=== PATIENT | female | born 1970 | race Hispanic/Latino ===

== ENCOUNTER 2018-12-24 09:00 | Outpatient (AMBR) | payer MEDICAID, SELFPAY ==
--- NOTE | 2018-12-05 14:21 | PT.ODAYNRPT ---
PT Outpatient Daily Note Date of Service: December 05, 2018 OP Daily Note Visit Reasons: cva Outpatient Physical Therapy Treatment Date: 12/05/18 Subjective: Doing well today Objective: See F/S for therex Assessment: Pt has limited R LE balance and WB tolerance and requires hand support in standing. Plan: Continue per POC Length of Time (minutes) of Treatment: 30 Minutes Office Procedures PT Procedures PT Date of Service: 12/05/18 Therapeutic Exercise 30 minutes: Yes
--- NOTE | 2018-12-10 13:15 | PT.ODAYNRPT ---
PT Outpatient Daily Note Date of Service: December 10, 2018 OP Daily Note Pediatric or Adult Patient: Adult PT >13 Visit Reasons: cva Outpatient Physical Therapy Treatment Date: 12/10/18 Subjective: Doing well today, no complaints since last visit Objective: See F/S for therex Assessment: Pt has limited R LE balance and WB tolerance and requires hand support in standing. Plan: Continue per POC Length of Time (minutes) of Treatment: 30 Minutes Office Procedures PT Procedures PT Date of Service: 12/05/18 Therapeutic Exercise 30 minutes: Yes PT Procedures PT Date of Service: 12/10/18 Therapeutic Exercise 30 minutes: Yes
--- NOTE | 2018-12-12 11:34 | PT.ODAYNRPT ---
PT Outpatient Daily Note Date of Service: December 12, 2018 OP Daily Note Visit Reasons: cva Outpatient Physical Therapy Treatment Date: 12/12/18 Subjective: Doing well today, no complaints since last visit Objective: See F/S for therex Assessment: Pt has limited R LE balance and WB tolerance and requires hand support in standing. Able to move R LE into figure 4 position with light resistance and DF R ankle but in standing she has difficulty clearing toes. Plan: Continue per POC Length of Time (minutes) of Treatment: 30 Minutes Office Procedures PT Procedures PT Date of Service: 12/05/18 Therapeutic Exercise 30 minutes: Yes PT Procedures PT Date of Service: 12/10/18 Therapeutic Exercise 30 minutes: Yes PT Procedures PT Date of Service: 12/12/18 Therapeutic Exercise 30 minutes: Yes
--- NOTE | 2018-12-17 19:32 | PT.ODAYNRPT ---
PT Outpatient Daily Note Date of Service: December 17, 2018 OP Daily Note Pediatric or Adult Patient: Adult PT >13 Visit Reasons: cva Outpatient Physical Therapy Treatment Date: 12/17/18 Subjective: Doing well today, no complaints since last visit Objective: See F/S for therex Assessment: Pt has limited R LE balance and WB tolerance and requires hand support in standing. Able to move R LE into figure 4 position with light resistance and DF R ankle but in standing she has difficulty clearing toes. Plan: Continue per POC Length of Time (minutes) of Treatment: 30 Minutes Office Procedures PT Procedures PT Date of Service: 12/17/18 Therapeutic Exercise 30 minutes: Yes PT Procedures PT Date of Service: 12/05/18 Therapeutic Exercise 30 minutes: Yes PT Procedures PT Date of Service: 12/10/18 Therapeutic Exercise 30 minutes: Yes PT Procedures PT Date of Service: 12/12/18 Therapeutic Exercise 30 minutes: Yes
--- NOTE | 2018-12-24 18:12 | PT.ODS1RPT ---
PT OP Progress/Discharge Note Date of Service: December 24, 2018 Progress Note/DC Note Progress Note/Discharge Note: Progress Note Patient Information Visit Reasons: cva Service Continue Service or Discharge: Continue Service Status Subjective: Pt and son think she has improved since starting therapy in strength. Objective: Gait: hemiplegic pattern with decreased ankle DF R hip flexion: 3-/5 Knee extension: 3-/5 Transfers: supine to sit with Delfin for LE management. Assessment: Pt has attended 6/6 Rx visits and made fair progress with therapy goals. She has good reflexive balance reactions in standing but limited R ankle DF limits toe clearance. Tone varies day to day but limits R UE A/PROM. Pt would benefit from continued therapy in order to reach goal of transferring from supine to sit with modified independence using logrolling technique. Plan: Request additional visits 2x a week for 2 weeks Office Procedures PT Procedures PT Date of Service: 12/17/18 Therapeutic Exercise 30 minutes: Yes PT Procedures PT Date of Service: 12/24/18 Therapeutic Exercise 30 minutes: Yes PT Procedures PT Date of Service: 12/05/18 Therapeutic Exercise 30 minutes: Yes PT Procedures PT Date of Service: 12/10/18 Therapeutic Exercise 30 minutes: Yes PT Procedures PT Date of Service: 12/12/18 Therapeutic Exercise 30 minutes: Yes
== END 2019-01-03 23:59 | disposition home or self-care (01) ==
PROVIDERS: PCP Family Medicine; Referring Provider Family Medicine; Visit Provider Family Medicine
DX: I69.351 Hemiplegia and hemiparesis following cerebral infarction affecting right dominant side (principal)
CPT/HCPCS: 97110